=== PATIENT | female | born 1975 | race Two or more races ===

== ENCOUNTER 2019-12-17 16:58 | Emergency (ER) | payer MEDICAID ==
[~2019-12-17] VITALS: Ht 162.6 cm; Wt 65.8 kg
--- NOTE | 2019-12-17 17:00 | NUR ---
PT BIB [facility] FROM HOME WITH HER SON C/O SOB DUE TO ASTHMA ATTACK. [facility]
[2019-12-17] MEDS ORDERED: methylPREDNISolone SOD SUCC 125 MG/2 ML VIAL ONE (17:09)
[2019-12-17] MEDS ORDERED: ALBUTEROL SULFATE 2.5 MG/3 ML NEBU ONE (17:12)
[2019-12-17] MEDS ORDERED: MAGNESIUM SULFATE/D5W 200 ML ONE (17:12)
[2019-12-17] MEDS ORDERED: IPRATROPIUM BROMIDE 0.5 MG/2.5 ML NEBU ONE (17:13)
[2019-12-17] MEDS ORDERED: IPRATROPIUM BROMIDE 0.5 MG/2.5 ML NEBU NEB ONE (17:15)
[2019-12-17] MEDS ORDERED: ALBUTEROL SULFATE 2.5 MG/3 ML NEBU NEB ONE (17:15)
[2019-12-17] MEDS ORDERED: methylPREDNISolone SOD SUCC 125 MG/2 ML VIAL IV ONE (17:15)
[2019-12-17] MEDS ORDERED: MAGNESIUM SULFATE 2 GM in IV DEXTROSE 5% 100 ML IV ONE (17:15)
[2019-12-17] MEDS ORDERED: diphenhydrAMINE 50 MG/1 ML VIAL ONE (17:29)
[2019-12-17] MEDS ORDERED: METOCLOPRAMIDE HCL 10 MG/2 ML VIAL ONE (17:29)
[2019-12-17] MEDS ORDERED: diphenhydrAMINE 50 MG/1 ML VIAL IV ONE (17:30)
[2019-12-17] MEDS ORDERED: METOCLOPRAMIDE HCL 10 MG/2 ML VIAL IV ONE (17:30)
[2019-12-17] MEDS ORDERED: IV NORMAL SALINE 1000 ML BAG IV ONE (18:30)
--- NOTE | 2019-12-17 18:38 | NUR ---
PT O2 SAT ON ROOM AIR IS 88% , PT IS SLEEPING COMFORTABLY .
--- NOTE | 2019-12-17 19:04 | NUR ---
GAVE REPORT TO MARIE Gong RN.
--- NOTE | 2019-12-17 19:29 | NUR ---
Pt states feeling better. made aware.
--- NOTE | 2019-12-17 20:35 | NUR ---
PT states she has no way to get home, no money and doesn't have a credit card for [employer]. Called [employer] for a taxi voucher. Awaiting call back.
--- NOTE | 2019-12-17 21:19 | NUR ---
Patient discharged to home in stable conditon. Written and verbal after care instructions given. Patient verbalizes understanding of instructions. Pt ambulated out of ER with steady gait, no acute signs of distress, VSS, all belongings taken, IV site discontinued, pt provided with taxi voucher, awaiting ride in waiting room.
[2019-12-17 21:20] VITALS: BP 119/74
== END 2019-12-17 21:21 | disposition home or self-care (01) ==
LOC: ER 16:58
DX: J45.901 Unspecified asthma with (acute) exacerbation (principal)
CPT/HCPCS: 71045; 94644; 96365; 96366; 96375; 99285; J1200; J2765; J2930; J3475; A4663; J3590; J7030